=== PATIENT | female | born 1955 | race African-American/Black ===

== ENCOUNTER 2019-06-23 12:39 | Emergency (ER) | payer MEDICARE, MEDICAID ==
[~2019-06-23] VITALS: Ht 170.2 cm; Wt 100.0 kg
[2019-06-23 13:50] VITALS: BP 182/86
[2019-06-23] MEDS ORDERED: ACETAMINOPHEN 325MG TABLET PO ONE (15:30)
== END 2019-06-23 16:00 | disposition home or self-care (01) ==
LOC: ER 13:18
DX: S00.12XA Contusion of left eyelid and periocular area, initial encounter (principal); W05.0XXA Fall from non-moving wheelchair, initial encounter; R03.0 Elevated blood-pressure reading, without diagnosis of hypertension; Y93.89 Activity, other specified; Y92.128 Other place in nursing home as the place of occurrence of the external cause; Z86.73 Personal history of transient ischemic attack (TIA), and cerebral infarction without residual deficits; J44.9 Chronic obstructive pulmonary disease, unspecified
CPT/HCPCS: 70486; 99284